=== PATIENT | female | born 1955 | race Caucasian/White ===

== ENCOUNTER 2016-08-23 11:23 | Emergency (ER) | payer OTHER ==
[~2016-08-23] VITALS: Ht 157.5 cm; Wt 69.0 kg
[~2016-08-23 11:23] MED LIST: CIPR500T4 PO; FLUT15CR TP; IBUP200C PO; PHEN-538 PO
[2016-08-23 11:40] VITALS: Ht 157.5 cm; Wt 69.0 kg
[2016-08-23] MEDS ORDERED: AMOX1TAB10 PO (13:12)
[2016-08-23] MEDS ORDERED: MONT10TA21 PO (13:12)
--- NOTE | 2016-08-23 13:49 | ERD ---
ER Documentation Chief Complaint Date/Time DATE: 08/23/16 TIME: 13:44 Chief Complaint Pt with fever, sinus pain and congestion x 1 week. seasonal allergies. HPI 61-year-old female patient presents to the ER complaining of bilateral sinus pain and having worsening allergies. States that her allergens are pollen, cats and loja. States it is hard to get sleep at night. Reports that she feels like her nose is swollen because she has been rubbing and blowing her nose. States that usually Singulair works for her allergies. States that Zyrtec, Claritin and Benadryl do not work. Denies any headache, chills, abdominal pain, nausea, vomiting, chest pain, shortness of breath, lip or neck swelling. ROS All systems reviewed and are negative except as per history of present illness. Medications Home Meds Active Scripts Amoxicillin/Potassium Clav (Amox-Clav 875-125 mg Tablet) 875-125 mg Tab, 1 TAB PO BID for 5 Days, #10 TAB Prov:MALIHA ARBOLEDA PA-C 08/23/16 Montelukast Sodium* (Singulair*) 10 Mg Tablet, 10 MG PO QHS, #30 TAB Prov:MALIHA ARBOLEDA PA-C 08/23/16 Phenazopyridine Hcl* (Pyridium*) 200 Mg Tab, 200 MG PO TID Y for URINARY PAIN, # 6 TAB Prov:MAICOL SHANNON NP 05/13/16 Ciprofloxacin Hcl* (Ciprofloxacin Hcl*) 500 Mg Tablet, 500 MG PO BID for 10 Days , TAB Prov:MAICOL SHANNON NP 05/13/16 Reported Medications Fluticasone Propionate* (Fluticasone Propionate* Cream) 60 Gm Cream.gm., 50 GM TP DAILY 08/29/12 Ibuprofen* (Ibuprofen*) 200 Mg Capsule, 200 MG PO TID 08/29/12 Allergies Allergies: Coded Allergies: No Known Drug Allergy (Verified Allergy, Mild, 05/12/16) PMhx/Soc History of Surgery: No Anesthesia Reaction: No Hx Neurological Disorder: No Hx Respiratory Disorders: Yes (ALLERGIES) Hx Cardiac Disorders: Yes (high cholesterol) Hx Psychiatric Problems: No Hx Miscellaneous Medical Probl: No Hx Alcohol Use: No Hx Substance Use: No Hx Tobacco Use: No Physical Exam Vitals Vital Signs Date Time Temp Pulse Resp B/P Pulse Ox O2 Delivery O2 Flow Rate FiO2 08/23/16 11:40 99.2 98 20 131/86 98 Physical Exam Const: [id number], well-nourished. In no acute distress. Head: Atraumatic, normocephalic. Tenderness to palpation of the bilateral maxillary sinuses. Eyes: Normal Conjunctiva without injection. No purulent discharge. PERRLA. EOMI ENT: Normal external ear. Ear canal without erythema. Tympanic membrane pearly iniguez without effusion or bulging. Nasal canal clear with normal turbinates. Moist oropharynx without tonsillar exudates. Non-erythematous pharynx. Uvula midline. No drooling. No trismus. Neck: No cervical midline tenderness. Full range of motion. No meningismus. No cervical lymphadenopathy. No JVD. Resp: Clear to auscultation bilaterally. No wheezing, rhonchi, rales, or crackles. No accessory muscle use. No retractions. Cardio: Regular rate and rhythm. No murmurs, rubs or gallops. Abd: Soft, non tender, non distended. Normal bowel sounds. No palpable masses. No rebound tenderness. No guarding. Negative McBurney's Point. Negative Sanchez's Sign. Skin: Normal skin turgor. No petechiae or rashes Back: No midline tenderness. No CVA tenderness. Ext: No cyanosis, or edema. Distal pulses intact bilaterally. Neur: Awake and alert. Normal gait. Normal coordination. Cranial Nerves II- VII intact. Normal finger to nose. Muscle strength 5/5. Sensation intact. Psych: Normal Mood and Affect Procedures/MDM 61-year-old female patient with a past medical history of allergies and sinus pain presents to the ED complaining of sinus pain and worsening allergies. Patient is afebrile and nontoxic-appearing. Patient has normal vital signs. Patient has tenderness to palpation of the bilateral maxillary sinuses. Patient is appropriate for outpatient management. A course of antibiotics will be prescribed for patient. Patient also reports that she wants a refill for her Singulair. Patient's physical exam include lungs which were clear to auscultation and a normal pulse oximetry. Bilateral ears pearly buckley. No tenderness to palpation of tragus or mastoid. Low suspicion for mastoiditis, otitis externa, otitis media. Patient is speaking in full sentences. There is a low suspicion for pneumonia, epiglottitis, croup, sinusitis, peritonsillar abscess, hands foot mouth disease, scarlet fever, kawasaki disease, retropharyngeal abscess, meningitis, sepsis, acute abdomen or other emergent conditions. Discharge medications: Augmentin, Singulair Follow up with primary care physician in 1-2 days. Instructed patient to return to the ED sooner for any worsening symptoms. Patient's questions were answered. Patient understood and agreed with discharge plan. Patient discharged stable. Departure Diagnosis: Primary Impression: Sinus pain Additional Impression: Allergic rhinitis Allergic rhinitis trigger: pollen Allergic rhinitis seasonality: unspecified seasonality Qualified Code: J30.1 - Allergic rhinitis due to pollen, unspecified rhinitis seasonality Condition: Stable Patient Instructions: Allergic Rhinitis, Sinusitis, Abx Tx [facility] Usted se petersen hecho un examen mdico de control que le indica que no est en aubrey condicin que requiera tratamiento urgente en el Departamento de Emergencia. Un estudio ms profundo y el tratamiento de piña condicin pueden esperar sin ningn riesgo hasta que usted sea atendida/o en el consultorio de piña mdico o aubrey cl dahlia. Es responsabilidad suya arreglar aubrey maia para el seguimiento del poncho. MANEJO DE CONDICIONES NO URGENTES EN EL FUTURO 1) Si usted tiene un mdico de atencin primaria: Usted debera llamar a piña mdico de atencin primaria antes de venir al departamento de emergencia. Despus de las horas de consultorio, piña doctor o piña asociado/a est disponible por telfono. El mdico o enfermero de aimee en el servicio telefnico puede asesorarle por waqar medio para atender el problema, o poncho contrario se puede programar aubrey maia. 2) Si usted no tiene un mdico de atencin primaria: Llame al mdico o clnica de referencia que aparece abajo raul las horas de consultorio para hacer aubrey maia para que le vean. CLINICAS: [facility] [id number] [facility] [phone] [facility] [phone] [facility] [phone] [id number] [place] [phone] [facility]. [phone] [facility]. [facility] () Usted se petersen hecho un examen mdico de control que le indica que no est en aubrey condicin que requiera tratamiento urgente en el Departamento de Emergencia. Un estudio ms profundo y el tratamiento de piña condicin pueden esperar sin ningn riesgo hasta que usted sea atendida/o en el consultorio de piña mdico o aubrey cl dahlia. Es responsabilidad suya arreglar aubrey maia para el seguimiento del poncho. MANEJO DE CONDICIONES NO URGENTES EN EL FUTURO 1) Si usted tiene un mdico de atencin primaria: Usted debera llamar a piña mdico de atencin primaria antes de venir al departamento de emergencia. Despus de las horas de consultorio, piña doctor o piña asociado/a est disponible por telfono. El mdico o enfermero de aimee en el servicio telefnico puede asesorarle por waqar medio para atender el problema, o poncho contrario se puede programar aubrey maia. 2) Si usted no tiene un mdico de atencin primaria: Llame al mdico o condado institucions de referencia que aparece abajo raul las horas de consultorio para hacer aubrey maia para que le vean. SI USTED NO PUEDE PAGAR PARA ROBINSON UN MEDICO puede ir a: [facility] [address] [place] [address] [facility] [address] [place] [address] [facility] [address] [place] [address] [facility] [address] [place], [place] [id number] [facility] URGENT CARE/SPECIALTIES Additional Instructions: Llame al doctor MAANA y srikanth aubrey MAIA PARA DENTRO DE 2-3 GUZMAN.Dgale a la secretaria que nosotros le instruimos hacer esta maia.Avise o llame si piña condicin se empeora antes de la maia. Regresa aqui si peor o no mejor. MALIHA ARBOLEDA PA-C Aug 23, 2016 13:49
== END 2016-08-23 13:27 | disposition home or self-care (01) ==
LOC: FTE 11:23
DX: J34.89 Other specified disorders of nose and nasal sinuses (principal); J30.1 Allergic rhinitis due to pollen
CPT/HCPCS: 99284